=== PATIENT | female | born 1985 | race African-American/Black ===

== ENCOUNTER 2017-01-01 18:53 | Emergency (ER) | payer OTHER ==
[2017-01-01] MEDS ORDERED: ASPIRIN 325 MG TABLET, ENT COATED PO ONE (19:37)
--- NOTE | 2017-01-01 19:39 | ER Document Report ---
ED Medical Screen (RME) - General Chief Complaint: Chest Pain Stated Complaint: CHEST PAIN AND NAUSEA Time Seen by Provider: 01/01/17 19:37 Mode of Arrival: Ambulatory Information source: Patient, Parent TRAVEL OUTSIDE OF THE [place] IN LAST 30 DAYS: No - HPI Patient complains to provider of: CP Onset: Other - Pt. with c/o SSCP for the past several days -- was seen at recently and told it may be Chest Wall pain, given steroid pack, but pain has persisted - Related Data Allergies/Adverse Reactions: No Known Allergies Allergy (Verified 01/01/17 19:07) Past Medical History Pulmonary Medical History: Reports: Hx Bronchitis Denies: Hx Asthma Renal/ Medical History: Denies: Hx Peritoneal Dialysis - Immunizations Hx Diphtheria, Pertussis, Tetanus Vaccination: - Unknown Physical Exam - Vital signs Vitals: Temp Pulse Resp BP Pulse Ox 98.0 F 84 18 153/107 H 96 01/01/17 19:06 01/01/17 19:06 01/01/17 19:06 01/01/17 19:06 01/01/17 19:06 Course - Vital Signs Vital signs: Temp Pulse Resp BP Pulse Ox 98.0 F 84 18 153/107 H 96 01/01/17 19:06 01/01/17 19:06 01/01/17 19:06 01/01/17 19:06 01/01/17 19:06
[2017-01-01 20:15] LABS: ABSOLUTE BASOPHILS # (AUTO) 0.1 10^3/uL (0.0-0.2); ABSOLUTE EOSINOPHILS # (AUTO) 0.1 10^3/uL (0.0-0.6); ABSOLUTE LYMPHOCYTES (AUTO) 2.4 10^3/uL (0.5-4.7); ABSOLUTE MONOCYTES (AUTO) 0.9 10^3/uL (0.1-1.4); ABSOLUTE NEUT (AUTO) 5.3 10^3/uL (1.7-8.2); EOSINOPHILS % (AUTO) 0.7 % (0-6); HEMATOCRIT 40.8 % (36.0-47.0); HEMOGLOBIN 13.7 g/dL (12.0-15.5); HGB HCT DIFFERENCE 0.3; MEAN CORPUSCULAR HEMOGLOBIN 28.6 pg (27.0-33.4); MEAN CORPUSCULAR HGB CONC 33.6 g/dL (32.0-36.0); MEAN CORPUSCULAR VOLUME 85 fl (80-97); MONOCYTES % (AUTO) 10.4 % (3-13); RED BLOOD COUNT 4.79 10^6/uL (3.72-5.28); RED CELL DISTRIBUTION WIDTH 14.3 % (11.5-14.0); SEGMENTED NEUTROPHILS % (AUTO) 60.9 % (42-78); WHITE BLOOD COUNT 8.7 10^3/uL (4.0-10.5)
[2017-01-01 20:35] LABS: ALANINE AMINOTRANSFERASE 50 U/L (9-52); ALBUMIN 4.8 g/dL (3.5-5.0); ALKALINE PHOSPHATASE 86 U/L (38-126); ANION GAP 16 (5-19); ASPARTATE AMINO TRANSFERASE 27 U/L (14-36); BILIRUBIN,DIRECT 0.3 mg/dL (0.0-0.4); BILIRUBIN,TOTAL 0.7 mg/dL (0.2-1.3); BLOOD UREA NITROGEN 12 mg/dL (7-20); CALCIUM 10.1 mg/dL (8.4-10.2); CARBON DIOXIDE 26 mmol/L (22-30); CHLORIDE 97 mmol/L (98-107); CREATINE KINASE 142 U/L (30-135); CREATININE RESULT 0.87 mg/dL (0.52-1.25); GLUCOSE 93 mg/dL (75-110); POTASSIUM 3.6 mmol/L (3.6-5.0); SODIUM 138.6 mmol/L (137-145); TOTAL PROTEIN 8.5 g/dL (6.3-8.2)
[2017-01-01 20:46] LABS: CREATINE KINASE MB < 0.22 ng/mL (<4.55); TROPONIN I < 0.012 ng/mL
--- NOTE | 2017-01-01 21:47 | RADIOLOGY REPORT (SQ) ---
EXAM DESCRIPTION: CHEST PA/LAT COMPLETED DATE/TIME: 01/01/2017 9:28 pm REASON FOR STUDY: CP COMPARISON: 07/08/2009 EXAM PARAMETERS: NUMBER OF VIEWS: two views TECHNIQUE: Digital Frontal and Lateral radiographic views of the chest acquired. RADIATION DOSE: NA LIMITATIONS: none FINDINGS: LUNGS AND PLEURA: No opacities, masses or pneumothorax. No pleural effusion. MEDIASTINUM AND HILAR STRUCTURES: No masses or contour abnormalities. HEART AND VASCULAR STRUCTURES: Heart normal size. No evidence for failure. BONES: No acute findings. HARDWARE: None in the chest. OTHER: No other significant finding. IMPRESSION: NO SIGNIFICANT RADIOGRAPHIC FINDING IN THE CHEST. TECHNICAL DOCUMENTATION: JOB ID: [id number] [employer]- All Rights Reserved
--- NOTE | 2017-01-01 22:34 | ER Document Report ---
ED General - General Chief Complaint: Chest Pain Stated Complaint: CHEST PAIN AND NAUSEA Time Seen by Provider: 01/01/17 19:37 Mode of Arrival: Ambulatory Notes: Patient is a 31-year-old female presents with complaint of chest pain. Patient says chest pain for almost a week. She says that she saw urgent care on either Friday or Friday. She was started on a prednisone Dosepak and also hydrochlorothiazide. She started on the prednisone Dosepak because they felt that maybe her pain was chest wall pain. She says after starting the prednisone made her feel very warm and flushed and tingling throughout her extremities made her feel very unwell. She therefore stopped taking it. She still has the chest pain. Pain is mainly over the right upper side of the chest. She has some pain radiates into the left lower part of the chest. She denies pain being pleuritic. She denies any new leg pain or leg swelling. She is overweight. She does have high blood pressure. She denies history of diabetes. She has no other medical problems. She used to be on control. She quit control 2 months ago. She does not smoke. Medication she is on is a antidepressant. Her doctor placed her on this medication because they thought it might help her lose weight. She was started on the antidepressant 1 month ago. TRAVEL OUTSIDE OF THE [place] IN LAST 30 DAYS: No - Related Data Allergies/Adverse Reactions: No Known Allergies Allergy (Verified 01/01/17 19:07) Past Medical History - General Information source: Patient, Parent - Social History Smoking Status: Never Smoker Chew tobacco use (# tins/day): No Frequency of alcohol use: None Drug Abuse: None Family History: Reviewed & Not Pertinent Pulmonary Medical History: Reports: Hx Bronchitis Denies: Hx Asthma Renal/ Medical History: Denies: Hx Peritoneal Dialysis - Immunizations Hx Diphtheria, Pertussis, Tetanus Vaccination: - Unknown Review of Systems - Review of Systems Notes: My Normal Review Basic REVIEW OF SYSTEMS: CONSTITUTIONAL : Denies fever, chills, or sweats. Denies recent illness. EENT: Denies eye, ear, throat, or mouth pain or symptoms. Denies nasal or sinus congestion. CARDIOVASCULAR: Chest pain RESPIRATORY: Denies cough, cold, or chest congestion. Denies shortness of breath, difficulty breathing, or wheezing. GASTROINTESTINAL: Denies abdominal pain. Denies nausea, vomiting, or diarrhea. Denies constipation. Last BM: MUSCULOSKELETAL: Denies neck or back pain or joint pain or swelling. SKIN: Denies rash or skin lesions. NEUROLOGICAL: Denies altered mental status or loss of consciousness. Denies headache. Denies weakness or paralysis or loss of use of either side. Denies problems with gait or speech. Denies sensory or motor loss. ALL OTHER SYSTEMS REVIEWED AND NEGATIVE. Physical Exam - Vital signs Vitals: Temp Pulse Resp BP Pulse Ox 98.0 F 84 18 153/107 H 96 01/01/17 19:06 01/01/17 19:06 01/01/17 19:06 01/01/17 19:06 01/01/17 19:06 - Notes Notes: General Appearance: Well nourished, alert, cooperative, no acute distress, no obvious discomfort. Vitals: reviewed, See vital signs table. Head: no swelling or tenderness to the head Eyes: PERRL, EOMI, Conjuctiva clear Mouth: No decreasd moisture Throat: No tonsillar inflammation, No airway obstruction, No lymphadenopathy Neck: Supple, no neck tenderness Chest wall: No reproducible pain to palpation of chest wall. Lungs: No wheezing, No rales, No rhonci, No accessory muscle use, good air exchange bilaterally. Heart: Normal rate, Regular rythm, No murmur, no rub Abdomen: Normal BS, soft, No rigidity, No abdominal tenderness, No guarding, no rebound, no abdominal masses, no organomegaly Extremities: strength 5/5 in all extremities, good pulses in all extremities, no swelling or tenderness in the extremities, no edema. Skin: warm, dry, appropriate color, no rash Neuro: speech clear, oriented x 3, normal affect, responds appropriately to questions. Course - Re-evaluation Re-evalutation: 01/02/17 02:45 The exact cause of the patient's chest pain is not 100% clear at this time. Suspect there may be a gastritis and reflux component being that she has a burning type sensation that radiates up into her chest. Pain is also intermittent. I do not suspect coronary disease being the patient is only 31 years old, she has no cardiac risk factors other than hypertension and obesity, she is not diabetic, and her troponin and delta troponin are both negative. I did obtain a d-dimer which is negative. My suspicion for PE is very low. She is not tachycardic, not tachypneic, not hypoxemic. She is not currently on oral contraceptive therapy as she has not had any recent surgeries. She denies any leg pain or leg swelling. At this time I will discharge her home. I will place her amlodipine to help treat her hypertension. I encouraged her to continue take a 12-1/2 mg of hydrochlorothiazide. I will refer her to [facility] for evaluation also for continued blood pressure management. She is encouraged to return to ER if she has worsening chest pain, fevers, vomiting , or feels unwell. Patient agrees with plan and will be discharged home. Dictation of this chart was performed using voice recognition software; therefore, there may be some unintended grammatical errors. - Vital Signs Vital signs: Temp Pulse Resp BP Pulse Ox 98.0 F 84 15 139/96 H 99 01/01/17 19:06 01/01/17 19:06 01/02/17 00:19 01/02/17 00:01 01/02/17 00:19 - Laboratory Result Diagrams: 01/01/17 19:59 01/01/17 19:59 Laboratory results interpreted by me: 01/01/17 01/01/17 19:59 19:59 RDW 14.3 H Chloride 97 L Creatine Kinase 142 H Total Protein 8.5 H - EKG Interpretation by Me Additional EKG results interpreted by me: 01/01/17 22:33 EKG is reviewed and interpreted by me. EKG shows normal sinus with a rate of [address] segment elevation or depression. No ischemic T-wave inversions. KS interval, QRS duration, QTc intervals are within normal range. No old EKG available for comparison. Discharge - Discharge Clinical Impression: Hypertension Qualifiers: Hypertension type: unspecified Qualified Code(s): I10 - Essential (primary) hypertension Chest pain Qualifiers: Chest pain type: unspecified Qualified Code(s): R07.9 - Chest pain, unspecified Condition: Good Disposition: HOME, SELF-CARE Additional Instructions: NORMAL EXAM AND WORKUP: At this time, your examination and workup show no significant abnormality. No significant abnormal physical findings were noted. All laboratory, EKG, and imaging (x-ray) studies that were ordered show no significant abnormality. Although your examination and all studies that were ordered showed no significant abnormal finding, there are no examinations and no studies that are 100% accurate. There is always the possibility that some abnormality could exist and not be detected with physical examination or within the limits and capabilities of laboratory and other studies. You should return or follow up as you were instructed on your visit today for further evaluation if your symptoms do not resolve. ACID REFLUX DISEASE (GERD): Gastro-Esophageal Reflux Disease (GERD) is caused by stomach acid refluxing back up into the esophagus. The valve at the end of the esophagus may be weak. This is common in persons with a hiatal hernia. GERD symptoms can include indigestion, chest pain, heartburn, or food "sticking." Certain foods, alcohol, and aspirin can make GERD worse. Treatment depends on the severity. Usually, antacids or acid-suppressing medicines are used. When the esophagus is acutely inflamed, the physician will often prescribe membrane-protective drugs such as Carafate. Some patients benefit from medication such as Reglan that tightens the valve at the top of the stomach. Avoid those foods that bring on your symptoms. For many people, these foods are coffee, chocolate, onions, garlic, and carbonated drinks. Don't use alcohol, aspirin, caffeine, or tobacco. Don't eat late at night -- within 4 hours of bedtime. Don't over-eat. If necessary, elevate the head of your bed about 4 inches so that stomach acid will not roll up into your esophagus. Call the doctor if you develop severe chest pain, inability to swallow fluids, fever, or worsening symptoms. PRILOSEC (ACID PUMP INHIBITOR): Prilosec (omeprazole) is an acid-pump inhibitor. It blocks the secretion of hydrogen ions in the acid-producing cells of the stomach. Prilosec keeps your stomach from making acid. Take all medication as prescribed, even after the pain is gone. Regular antacids may be added as needed if you have symptoms while taking this medicine. There are usually no side effects from this medication. Contact your doctor if there is fever, rash, yellow skin color, increasing abdominal pain, weakness, or unusual bruising. Return at once if you develop lightheadedness, black or bloody stool, or bloody vomitus. FOLLOW-UP CARE: If you have been referred to a physician for follow-up care, call the physician s office for an appointment as you were instructed or within the next two days. If you experience worsening or a significant change in your symptoms, notify the physician immediately or return to the Emergency Department at any time for re-evaluation. The exact cause of her chest pain is on 100% clear. This could be related to acid reflux being that you have a burning type sensation that goes into her chest. Please start taking [id number] Prilosec. The generic name is omeprazole. You can find this at any pharmacy. You do have some hypertension. I will start you on amlodipine 5 mg a day. Please stop taking this medication if it makes you feel weak or tired or lightheaded. Please follow-up with your primary care doctor for reevaluation. If you continue to have chest pain please follow-up with Dr. Johnson, [facility], for reevaluation and for also further control of your high blood pressure. Prescriptions: Amlodipine Besylate 5 mg PO DAILY #20 tab Forms: Return to Work Referrals: JOSE JOHNSON MD [ACTIVE STAFF] - Follow up in 3-5 days
--- NOTE | 2017-01-01 22:47 | EKG REPORT ---
SEVERITY:- NORMAL ECG - SINUS RHYTHM : Confirmed by: Corie Street 01-Jan-2017 22:46:51
[2017-01-02] MEDS ORDERED: FAMOTIDINE 20 MG TABLET PO ONE (00:08)
[2017-01-02 00:20] VITALS: BP 139/96
== END 2017-01-02 00:41 | disposition home or self-care (01) ==
LOC: ER 18:53
DX: R07.9 Chest pain, unspecified (principal); M79.89 Other specified soft tissue disorders; I10 Essential (primary) hypertension
CPT/HCPCS: 36415; 71020; 80053; 82550; 82553; 84484; 85025; 85379; 93005; 93010; 99285

== ENCOUNTER → 2017-07-08 | Outpatient (CLI) | payer OTHER | LOC: OD 11:01 | PROVIDERS: ATTEND Otolaryngology | DX: J01.91 Acute recurrent sinusitis, unspecified (principal) | CPT/HCPCS: 36415; 82785; 86003 ==

== ENCOUNTER 2018-09-24 12:34 | Emergency (ER) | payer OTHER ==
--- NOTE | 2018-09-24 13:00 | ER Document Report ---
ED Medical Screen (RME) - General Chief Complaint: Chest Pain Stated Complaint: CHEST PAIN Time Seen by Provider: 09/24/18 12:54 Primary Care Provider: MAR HOLBROOK DO [NO LOCAL MD] - Follow up as needed Mode of Arrival: Ambulatory Information source: Patient Notes: Patient is a 33-year-old female presented to the emergency department with complaints of right upper quadrant abdominal pain that started on Friday. Patient reports pain is worse when she takes a deep breath. The pain is not reproducible. She did have associated nausea without vomiting or diarrhea. She does not report that this is associated with any food intake. Exam: Tenderness to palpation to right upper quadrant. I have greeted and performed a rapid initial assessment of this patient. A comprehensive ED assessment and evaluation of the patient, analysis of test results and completion of the medical decision making process will be conducted by additional ED providers. Dictation of this chart was performed using voice recognition software; therefore, there may be some unintended grammatical errors. TRAVEL OUTSIDE OF THE [place] IN LAST 30 DAYS: No - Related Data Allergies/Adverse Reactions: No Known Allergies Allergy (Verified 09/24/18 12:37) Past Medical History - Past Medical History Cardiac Medical History: Reports: Hx Hypertension Pulmonary Medical History: Reports: Hx Bronchitis Denies: Hx Asthma Renal/ Medical History: Denies: Hx Peritoneal Dialysis - Immunizations Hx Diphtheria, Pertussis, Tetanus Vaccination: - Unknown Physical Exam - Vital signs Vitals: Temp Pulse Resp BP Pulse Ox 98.0 F 86 18 184/85 H 97 09/24/18 12:38 09/24/18 12:38 09/24/18 12:38 09/24/18 12:38 09/24/18 12:38 Course - Vital Signs Vital signs: Temp Pulse Resp BP Pulse Ox 98.0 F 86 18 184/85 H 97 09/24/18 12:38 09/24/18 12:38 09/24/18 12:38 09/24/18 12:38 09/24/18 12:38 Doctor's Discharge - Discharge Referrals: EDWIGE SERVIN DO [Primary Care Provider] - Follow up as needed
--- NOTE | 2018-09-24 13:06 | EKG REPORT ---
SEVERITY:- NORMAL ECG - SINUS RHYTHM : Confirmed by: Christ Roa MD 24-Sep-2018 13:04:47
[2018-09-24 13:27] LABS: ABSOLUTE BASOPHILS # (AUTO) 0.1 10^3/uL (0.0-0.2); ABSOLUTE EOSINOPHILS # (AUTO) 0.1 10^3/uL (0.0-0.6); ABSOLUTE LYMPHOCYTES (AUTO) 2.1 10^3/uL (0.5-4.7); ABSOLUTE MONOCYTES (AUTO) 0.6 10^3/uL (0.1-1.4); ABSOLUTE NEUT (AUTO) 4.9 10^3/uL (1.7-8.2); BASOPHILS % (AUTO) 1.1 % (0-2); EOSINOPHILS % (AUTO) 0.9 % (0-6); HEMATOCRIT 38.5 % (36.0-47.0); HEMOGLOBIN 12.8 g/dL (12.0-15.5); LYMPHOCYTES % (AUTO) 26.8 % (13-45); MEAN CORPUSCULAR HEMOGLOBIN 28.6 pg (27.0-33.4); MEAN CORPUSCULAR HGB CONC 33.3 g/dL (32.0-36.0); MEAN CORPUSCULAR VOLUME 86 fl (80-97); MONOCYTES % (AUTO) 7.4 % (3-13); PLATELET COUNT 355 10^3/uL (150-450); RED BLOOD COUNT 4.49 10^6/uL (3.72-5.28); RED CELL DISTRIBUTION WIDTH 13.9 % (11.5-14.0); SEGMENTED NEUTROPHILS % (AUTO) 63.8 % (42-78); TOTAL CELLS COUNTED % (AUTO) 100 %; WHITE BLOOD COUNT 7.7 10^3/uL (4.0-10.5)
[2018-09-24 13:36] LABS: APPEARANCE,URINE CLEAR; BILIRUBIN,URINE NEGATIVE (NEGATIVE); COLOR,URINE YELLOW; GLUCOSE, URINE NEGATIVE (NEGATIVE); KETONES,URINE NEGATIVE (NEGATIVE); LEUKOCYTE ESTERASE,URINE NEGATIVE (NEGATIVE); NITRITE,URINE NEGATIVE (NEGATIVE); PROTEIN,URINE 30 mg/dL (NEGATIVE); URINE SPECIFIC GRAVITY 1.018; UROBILINOGEN,URINE NEGATIVE mg/dL (<2.0)
[2018-09-24 13:53] LABS: ALANINE AMINOTRANSFERASE 32 U/L (9-52); ALBUMIN 4.4 g/dL (3.5-5.0); ALKALINE PHOSPHATASE 66 U/L (38-126); ANION GAP 10 (5-19); ASPARTATE AMINO TRANSFERASE 25 U/L (14-36); BILIRUBIN,DIRECT 0.2 mg/dL (0.0-0.4); BILIRUBIN,TOTAL 0.3 mg/dL (0.2-1.3); BLOOD UREA NITROGEN 13 mg/dL (7-20); CALCIUM 9.8 mg/dL (8.4-10.2); CARBON DIOXIDE 27 mmol/L (22-30); CHLORIDE 104 mmol/L (98-107); GLUCOSE 96 mg/dL (75-110); LIPASE 59.8 U/L (23-300); POTASSIUM 4.3 mmol/L (3.6-5.0); SODIUM 140.8 mmol/L (137-145); TOTAL PROTEIN 8.3 g/dL (6.3-8.2)
--- NOTE | 2018-09-24 14:44 | ER Document Report ---
ED General - General Chief Complaint: Chest Pain Stated Complaint: CHEST PAIN Time Seen by Provider: 09/24/18 12:54 Primary Care Provider: MAR HOLBROOK DO [Primary Care Provider] - Follow up as needed Mode of Arrival: Ambulatory Notes: Patient is a 33-year-old female with a history of hypertension presents to the emergency department with chief complaint of right lower rib pain. Patient states that on Friday she was driving in a car when she developed a right rib pain. Patient states she was not doing anything specific at that time. Patient states that since then the pain has been intermittent and worse when laying on her right side or when taking a deep breath. Patient denies fever, cough, shortness of breath or chest pain. Patient denies shortness of breath. Patient denies pain being associated with eating or drinking. Patient does deny abdominal pain although she states the pain could potentially be in the right upper quadrant as it is located underneath the right rib. Patient denies nausea vomiting or diarrhea. She denies recent long car rides. Patient does not smoke. Patient takes control pills. Patient denies calf pain or leg swelling. TRAVEL OUTSIDE OF THE [place] IN LAST 30 DAYS: No - Related Data Allergies/Adverse Reactions: No Known Allergies Allergy (Verified 09/24/18 12:37) Past Medical History - General Information source: Patient - Social History Smoking Status: Never Smoker Cigarette use (# per day): No Chew tobacco use (# tins/day): No Smoking Education Provided: No Frequency of alcohol use: None Drug Abuse: None Lives with: Family Family History: Reviewed & Not Pertinent Patient has suicidal ideation: No Patient has homicidal ideation: No - Past Medical History Cardiac Medical History: Reports: Hx Hypertension Pulmonary Medical History: Reports: Hx Bronchitis Denies: Hx Asthma EENT Medical History: Reports: None Neurological Medical History: Reports: None Endocrine Medical History: Reports: None Renal/ Medical History: Reports: None. Denies: Hx Peritoneal Dialysis Malignancy Medical History: Reports: None GI Medical History: Reports: None Musculoskeletal Medical History: Reports None Skin Medical History: Reports None Psychiatric Medical History: Reports: None Traumatic Medical History: Reports: None Infectious Medical History: Reports: None Surgical Hx: Negative - Immunizations Hx Diphtheria, Pertussis, Tetanus Vaccination: - Unknown Review of Systems - Review of Systems Constitutional: No symptoms reported EENT: No symptoms reported Cardiovascular: No symptoms reported Respiratory: See HPI Gastrointestinal: No symptoms reported Genitourinary: No symptoms reported Female Genitourinary: No symptoms reported Musculoskeletal: No symptoms reported Skin: No symptoms reported Hematologic/Lymphatic: No symptoms reported Neurological/Psychological: No symptoms reported Physical Exam - Vital signs Vitals: Temp Pulse Resp BP Pulse Ox 98.0 F 86 18 184/85 H 97 09/24/18 12:38 09/24/18 12:38 09/24/18 12:38 09/24/18 12:38 09/24/18 12:38 Interpretation: Hypertensive - Notes Notes: GENERAL: Well-appearing, well-nourished and in no acute distress. HEAD: Atraumatic, normocephalic. EYES: Pupils equal round and reactive to light, extraocular movements intact, sclera anicteric, conjunctiva are normal. ENT: Nares patent, oropharynx clear without exudates. Moist mucous membranes. NECK: Normal range of motion, supple without lymphadenopathy or JVD. LUNGS: Breath sounds clear to auscultation bilaterally and equal. No wheezes rales or rhonchi. Right lower rib pain with palpation. HEART: Regular rate and rhythm without murmurs, rubs or gallops. ABDOMEN: Round, obese, soft, nontender, normoactive bowel sounds. No guarding, no rebound. No masses appreciated. BACK: No cervical, thoracic, lumbar midline tenderness. No saddle anesthesia, normal distal neurovascular exam. GENITOURINARY: Deferred. EXTREMITIES: Normal range of motion, no pitting or edema. No clubbing or cyanosis. NEUROLOGICAL: Cranial nerves II through XII grossly intact. Normal speech, normal gait. PSYCH: Normal mood, normal affect. SKIN: Warm, Dry, normal turgor, no rashes or lesions noted. Course - Re-evaluation Re-evalutation: 09/24/18 14:49 Upon initial evaluation patient is sitting upright in no acute distress. Patient currently denies pain or discomfort in the RUQ or right lower rib. Patient states that she has not taken her blood pressure medications today. Patient reports that she went to [facility] for her discomfort since Friday but they sent her to the emergency department for evaluation of possible blood clot. Patient is a nontoxic-appearing. Informed patient that my suspicion for blood clot is low, but we can add on a test called a d-dimer to the blood work, if this is normal we do not have to expose her to radiation from the CAT scan. Patient is in agreement with this plan. Patient does not want anything for pain at this time. Patient is not tachycardic, tachypneic, or hypoxic. Patient was able to ambulate to the restroom without distress or shortness of breath. 09/24/18 18:19 CAT scan of the chest was negative. I did discuss these results with the patient and family member at bedside. Her symptoms are most likely musculoskeletal. Informed patient to take Tylenol or Ibuprofen if the symptoms return and seek medical attention if symptoms persist. Informed patient to take her blood pressure medication due to elevated BP, patient states she has not had her dosage as of today. - Vital Signs Vital signs: Temp Pulse Resp BP Pulse Ox 98.0 F 86 16 151/83 H 100 09/24/18 12:38 09/24/18 12:38 09/24/18 18:00 09/24/18 17:05 09/24/18 18:00 - Laboratory Result Diagrams: 09/24/18 13:11 09/24/18 13:11 Laboratory results interpreted by me: 09/24/18 09/24/18 09/24/18 13:11 13:11 13:11 D-Dimer 0.72 H Total Protein 8.3 H Urine Protein 30 H Urine Blood SMALL H - Diagnostic Test Radiology reviewed: Reports reviewed - EKG Interpretation by Me Additional EKG results interpreted by me: 09/24/18 14:48 Patient's EKG shows a sinus rhythm with a rate of 69. Patient's RI interval is 160, QT 392 and QTc 420. Patient has a normal axis deviation with no ST changes in consecutive leads. No change from previous EKG. Discharge - Discharge Clinical Impression: Rib pain on right side, Musculoskeletal pain Condition: Stable Disposition: HOME, SELF-CARE Additional Instructions: Today you were seen in the emergency department for right rib and right upper quadrant abdominal pain. Did obtain a CAT scan of your chest which was negative for pulmonary embolus. The pain that you are having could be musculoskeletal in nature. Take Tylenol or ibuprofen as needed for pain. If the pain returns or persist please go to your primary care physician for further management. Please return to the emergency department for worsening signs or symptoms to include severe abdominal pain, fever, vomiting, nausea, vomiting any worsening signs or symptoms. Chest Wall Pain Your chest pain has been diagnosed as coming from the chest wall. This is often caused by straining the muscles or joints in the chest during physical activity, direct trauma, coughing, or vigorous vomiting. Persons with arthritis are especially prone to this type of pain, due to inflammation of the cartilage joints near the breast bone. Occasionally, no cause can be found. Rest from strenuous physical activity. This kind of chest pain is usually made worse by movement of the chest. Depending on the symptoms, we may prescribe medicine for pain, muscle relaxation, and antiinflammatory effects. If the pain is new, and seems to be due to muscle strain, cold packs can hel p. Otherwise, apply gentle warmth to the painful area for 15 minutes every hour or two. You should contact the doctor immediately if things change. Further evaluation is needed if you develop a fever or cough, if the nature of the pain changes, or if you become short of breath. Referrals: MAR HOLBROOK, [Primary Care Provider] - Follow up as needed
--- NOTE | 2018-09-24 15:28 | RADIOLOGY REPORT (SQ) ---
EXAM DESCRIPTION: CHEST 2 VIEWS COMPLETED DATE/TIME: 09/24/2018 3:18 pm REASON FOR STUDY: right rib pain COMPARISON: 01/01/2017. EXAM PARAMETERS: NUMBER OF VIEWS: two views TECHNIQUE: Digital Frontal and Lateral radiographic views of the chest acquired. RADIATION DOSE: NA LIMITATIONS: none FINDINGS: LUNGS AND PLEURA: No opacities, masses or pneumothorax. No pleural effusion. MEDIASTINUM AND HILAR STRUCTURES: No masses or contour abnormalities. HEART AND VASCULAR STRUCTURES: Heart normal size. No evidence for failure. BONES: No acute findings. HARDWARE: None in the chest. OTHER: No other significant finding. IMPRESSION: NO ACUTE RADIOGRAPHIC FINDING IN THE CHEST. TECHNICAL DOCUMENTATION: JOB ID: [id number] [employer]- All Rights Reserved Reading location - IP/workstation name: [email or web address]
--- NOTE | 2018-09-24 18:14 | RADIOLOGY REPORT (SQ) ---
EXAM DESCRIPTION: CTA CHEST COMPLETED DATE/TIME: 09/24/2018 5:57 pm REASON FOR STUDY: elevated d-dimer COMPARISON: None. TECHNIQUE: CT scan of the chest performed using helical scanning technique with dynamic intravenous contrast injection. Images reviewed with lung, soft tissue and bone windows. Reconstructed coronal and sagittal MPR images reviewed. Additional 3 dimensional post-processing performed to develop Maximal Intensity Projection images ([place] P). All images stored on PACS. All CT scanners at this facility use dose modulation, iterative reconstruction, and/or weight based d osing when appropriate to reduce radiation dose to as low as reasonably achievable (ALARA). [facility]: Dose Right [facility]: CareDose [facility]: Dose Right [facility]: Teradose 4D [facility]: [employer] CONTRAST TYPE AND DOSE: contrast/concentration: Isovue 350.00 mg/ml; Total Contrast Delivered: 89.0 ml; Total Saline Delivered: 80.0 ml Contrast bolus optimized for the pulmonary arteries. Not diagnostic for the aorta. RENAL FUNCTION: GFR > 60. RADIATION DOSE: CT Rad equipment meets quality standard of care and radiation dose reduction techniq ues were employed. CTDIvol: 41.8 - 44.6 mGy. DLP: 1798 mGy-cm. . LIMITATIONS: None. FINDINGS: LUNGS AND PLEURA: No masses, infiltrates, or pneumothorax. No pleural effusions or pleura l calcifications. AORTA AND GREAT VESSELS: No aneurysm. Contrast bolus not optimized for the aorta. HEART: No pericardial effusion. No significant coronary artery calcifications. PULMONARY ARTERIES: No emboli visualized in the main pulmonary arteries or the segmental branches. HILAR AND MEDIASTINAL STRUCTURES: No identified masses or abnormal nodes. HARDWARE: None in the chest. UPPER ABDOMEN: No significant findings. Limited exam. THYROID AND OTHER SOFT TISSUES: No masses. No adenopathy. BONES: No acute or significant finding. 3D MIPS: Confirm above findings. OTHER: No other significant finding. IMPRESSION: NORMAL CTA OF THE CHEST. NO PULMONARY EMBOLI. COMMENT: Quality ID # [id number]: Final reports with documentation of one or more dose reduction techniques (e.g., Automated exposure control, adjustment of the mA and/or kV according to patient size, use of iterative reconstruction technique) TECHNICAL DOCUMENTATION: JOB ID: [id number] [employer]- All Rights Reserved Reading location - IP/workstation name: [email or web address]
[2018-09-24 19:37] VITALS: BP 136/78
== END 2018-09-24 19:38 | disposition home or self-care (01) ==
LOC: ER 12:34
DX: R07.81 Pleurodynia (principal); Z79.3 Long term (current) use of hormonal contraceptives
CPT/HCPCS: 36415; 71046; 71275; 80053; 81001; 81025; 83690; 85025; 85379; 93005; 93010; 99284

== ENCOUNTER → 2020-02-18 | Outpatient (CLI) | payer OTHER ==
--- NOTE | 2020-02-18 12:46 | RADIOLOGY REPORT (SQ) ---
EXAM DESCRIPTION: CHEST SINGLE VIEW IMAGES COMPLETED DATE/TIME: 02/18/2020 12:37 pm REASON FOR STUDY: ESSENTIAL (PRIMARY) HYPERTENSION, MORBID OBESITY, TYPE 2 DIABETES COMPARISON: 09/24/2018 EXAM PARAMETERS: NUMBER OF VIEWS: One view. TECHNIQUE: Single frontal radiographic view of the chest acquired. RADIATION DOSE: NA LIMITATIONS: None. FINDINGS: LUNGS AND PLEURA: No opacities, masses or pneumothorax. No pleural effusion. MEDIASTINUM AND HILAR STRUCTURES: No masses. Contour normal. HEART AND VASCULAR STRUCTURES: Heart normal in size. Normal vasculature. BONES: No acute findings. HARDWARE: None in the chest. OTHER: No other significant finding. IMPRESSION: NO ACUTE RADIOGRAPHIC FINDING IN THE CHEST. TECHNICAL DOCUMENTATION: JOB ID: [id number] 2010 [employer]- All Rights Reserved Reading location - IP/workstation name: [email or web address]
== END ==
LOC: OD 11:49
PROVIDERS: ATTEND Surgery
DX: E66.01 Morbid (severe) obesity due to excess calories (principal); E11.9 Type 2 diabetes mellitus without complications; I10 Essential (primary) hypertension; G47.30 Sleep apnea, unspecified
CPT/HCPCS: 71045

== ENCOUNTER 2020-05-18 14:42 | Emergency (ER) | payer OTHER ==
[2020-05-18 15:59] LABS: APPEARANCE,URINE SLIGHTLY-CLOUDY; BILIRUBIN,URINE NEGATIVE (NEGATIVE); GLUCOSE, URINE NEGATIVE (NEGATIVE); KETONES,URINE 80 mg/dL (NEGATIVE); LEUKOCYTE ESTERASE,URINE TRACE (NEGATIVE); NITRITE,URINE NEGATIVE (NEGATIVE); PROTEIN,URINE >=500 mg/dL (NEGATIVE); URINE SPECIFIC GRAVITY 1.032
[2020-05-18 16:00] LABS: COLOR,URINE YELLOW
[2020-05-18 16:05] LABS: ABSOLUTE LYMPHOCYTES (AUTO) 0.8 10^3/uL (0.5-4.7); ABSOLUTE MONOCYTES (AUTO) 0.4 10^3/uL (0.1-1.4); ABSOLUTE NEUT (AUTO) 2.5 10^3/uL (1.7-8.2); BASOPHILS % (AUTO) 0.5 % (0-2); EOSINOPHILS % (AUTO) 0.2 % (0-6); HEMATOCRIT 37.1 % (36.0-47.0); HEMOGLOBIN 12.2 g/dL (12.0-15.5); LYMPHOCYTES % (AUTO) 22.1 % (13-45); MEAN CORPUSCULAR HEMOGLOBIN 29.1 pg (27.0-33.4); MEAN CORPUSCULAR HGB CONC 32.8 g/dL (32.0-36.0); MEAN CORPUSCULAR VOLUME 89 fl (80-97); MONOCYTES % (AUTO) 10.1 % (3-13); PLATELET COUNT 239 10^3/uL (150-450); RED BLOOD COUNT 4.18 10^6/uL (3.72-5.28); RED CELL DISTRIBUTION WIDTH 14.1 % (11.5-14.0); SEGMENTED NEUTROPHILS % (AUTO) 67.1 % (42-78); TOTAL CELLS COUNTED % (AUTO) 100 %; WHITE BLOOD COUNT 3.8 10^3/uL (4.0-10.5)
[2020-05-18 16:29] LABS: ALBUMIN 4.2 g/dL (3.5-5.0); ALKALINE PHOSPHATASE 60 U/L (38-126); ANION GAP 15 (5-19); ASPARTATE AMINO TRANSFERASE 37 U/L (14-36); BILIRUBIN,DIRECT 0.3 mg/dL (0.0-0.4); BILIRUBIN,TOTAL 0.6 mg/dL (0.2-1.3); BLOOD UREA NITROGEN 13 mg/dL (7-20); CALCIUM 9.6 mg/dL (8.4-10.2); CARBON DIOXIDE 22 mmol/L (22-30); CHLORIDE 101 mmol/L (98-107); GLUCOSE 92 mg/dL (75-110); TOTAL PROTEIN 7.4 g/dL (6.3-8.2)
--- NOTE | 2020-05-18 16:36 | ER Document Report ---
ED GI/ - General Chief Complaint: Flank Pain Stated Complaint: RIGHT FLANK PAIN Time Seen by Provider: 05/18/20 15:11 Primary Care Provider: [facility] [Provider Group] - Follow up as needed YAMILETH GONZALEZ [ACTIVE STAFF] - Follow up as needed TRAVEL OUTSIDE OF THE [place] IN LAST 30 DAYS: No - HPI Notes: Patient is a 35-year-old female with no medical history who presents with right flank pain that began this morning. Patient states the pain radiates to her right lower quadrant. She reports nausea and vomiting but denies fever, chills, dysuria, hematuria, and diarrhea. Patient had a gastric sleeve surgery done on 04/12/2021 but denies any complications. Patient denies any history of kidney stones. Patient has not taken any medication for the pain today. - Related Data Allergies/Adverse Reactions: No Known Allergies Allergy (Verified 09/24/18 12:37) Past Medical History - General Information source: Patient - Social History Smoking Status: Unknown if Ever Smoked Family History: Reviewed & Not Pertinent - Past Medical History Cardiac Medical History: Reports: Hx Hypertension Pulmonary Medical History: Reports: Hx Bronchitis Denies: Hx Asthma Renal/ Medical History: Denies: Hx Peritoneal Dialysis - Immunizations Hx Diphtheria, Pertussis, Tetanus Vaccination: - Unknown Review of Systems - Review of Systems Constitutional: No symptoms reported EENT: No symptoms reported Cardiovascular: No symptoms reported Respiratory: No symptoms reported Gastrointestinal: See HPI Genitourinary: See HPI Female Genitourinary: No symptoms reported Musculoskeletal: No symptoms reported Skin: No symptoms reported Hematologic/Lymphatic: No symptoms reported Neurological/Psychological: No symptoms reported Physical Exam - Vital signs Vitals: Temp Pulse Resp BP Pulse Ox 98.0 F 101 H 18 150/90 H 98 05/18/20 14:45 05/18/20 14:45 05/18/20 14:45 05/18/20 14:45 05/18/20 14:45 - Notes Notes: PHYSICAL EXAMINATION: VITALS: Vitals reviewed and within normal limits. GENERAL: Well-appearing, well-nourished and in no acute distress. HEAD: Atraumatic, normocephalic. EYES: Pupils equal, round, and reactive to light, extraocular movements intact, sclera anicteric, conjunctiva are normal. ENT: Nares patent. Moist mucous membranes. Oropharynx clear without exudates. NECK: Normal range of motion, supple without lymphadenopathy. LUNGS: Breath sounds clear to auscultation bilaterally and equal. No wheezes, rales, or rhonchi. HEART: Regular, rate, and rhythm without murmurs. ABDOMEN: Soft, nontender, normoactive bowel sounds. No guarding, no rebound. No masses appreciated. No CVA tenderness EXTREMITIES: Normal range of motion, no pitting or edema. No cyanosis. NEUROLOGICAL: No focal neurological deficits. Moves all extremities spontaneously and on command. PSYCH: Normal mood, normal affect. SKIN: Warm, Dry, normal turgor, no rashes or lesions noted. Course - Re-evaluation Re-evalutation: Patient is a 35 y/o with right flank pain that radiates to her right lower quadrant that started earlier today. Vital signs are within normal limits and stable. On exam, abdomen is soft and nontender with negative CVA tenderness. CBC, and CMP are unremarkable and within normal limits. Lipase is minimally elev ated at 349. UA shows protein >500 and large blood but this is consistent with patient's current menstruation and is not a concerning finding. UA also shows ketones of 80, and trace leukocyte esterase but negative nitrite, however, urine is fairly dirty with 13 squamous epithelial cells. Urine culture ordered. 05/18/20 17:18 CT abdomen/pelvis w/o contrast shows no evidence of urolithiasis or obstructive uropathy. Incidental finding of a 5.7 cm right adnexal cyst. In the setting of right-sided pain, recommend further evaluation with pelvic ultrasound to assess right ovarian vascularity. Transvaginal US ordered. 05/18/20 17:58 Transvaginal US impression: 1. Enlarged right ovary with right ovarian cyst measuring up to 5.2 cm. There are some low-level internal echoes/thin internal septations with a small hyperechoic avascular structure at the periphery of the cyst, possibly representing a small blood clot. Given the presence of this echogenic structure, recommend follow-up ultrasound in 6 weeks to confirm resolution and to exclude persistent hypovascular solid component. 2. Arterial and venous blood flow demonstrated to both ovaries. 05/18/20 19:08 I informed the patient of her US results and the recommendation to follow up with her [facility] in 6 weeks for repeat US. Laboratories are unremarkable without evidence of cystitis, , or leukocytosis. Patient is overall very well in appearance. Based on clinical history and examination I do not suspect an acute appendicitis, tubo-ovarian abscess, related pathology, pelvic inflammatory disease, mesenteric ischemia, or pyelonephritis. At this time will discharge with return precautions and follow-up re commendations. Verbal discharge instructions given a the bedside and opportunity for questions given. Medication warnings reviewed. Patient is in agreement with this plan and has verbalized understanding of return precautions and the need for primary care follow-up in the next 24-72 hours. - Vital Signs Vital signs: Temp Pulse Resp BP Pulse Ox 98.5 F 75 18 152/99 H 100 05/18/20 19:26 05/18/20 19:26 05/18/20 19:26 05/18/20 19:26 05/18/20 19:26 - Laboratory Results Result Diagrams: 05/18/20 15:45 05/18/20 15:45 Laboratory Results Interpreted: 05/18/20 05/18/20 05/18/20 15:05 15:45 15:45 WBC 3.8 L RDW 14.1 H AST 37 H ALT 50 H Lipase 349.3 H Urine Protein >=500 H Urine Ketones 80 H Urine Blood LARGE H Urine Urobilinogen 2.0 H Ur Leukocyte Esterase TRACE H Critical Laboratory Results Reviewed: No Critical Results - Radiology Results Radiology Results Interpreted: Abdomen/Pelvis CT 05/18/20 15:28 IMPRESSION: No evidence of urolithiasis or obstructive uropathy. Incidental finding of a 5.7 cm right adnexal cyst. In the setting of right-sided pain, recommend further evaluation with pelvic ultrasound to assess right ovarian vascularity. Abdomen/Pelvis CT 05/18/20 15:28 IMPRESSION: No evidence of urolithiasis or obstructive uropathy. Incidental finding of a 5.7 cm right adnexal cyst. In the setting of right-sided pain, recommend further evaluation with pelvic ultrasound to assess right ovarian vascularity. Transvaginal US 05/18/20 17:13 IMPRESSION: 1. Enlarged right ovary with right ovarian cyst measuring up to 5 .2 cm. There are some low-level internal echoes/thin internal septations with a small hyperechoic avascular structure at the periphery of the cyst, possibly representing a small blood clot. Given the presence of this echogenic structure, recommend follow-up ultrasound in 6 weeks to confirm resolution and to exclude persistent hypovascular solid component. 2. Arterial and venous blood flow demonstrated to both ovaries. Critical Radiology Results Reviewed: No Critical Results Discharge - Discharge Clinical Impression: Right sided abdominal pain, Right flank pain Ovarian cyst Qualifiers: Laterality: right Qualified Code(s): N83.201 - Unspecified ovarian cyst, right side Condition: Stable Disposition: HOME, SELF-CARE Additional Instructions: Today been diagnosed with an ovarian cyst. These typically occur in the middle of your typical menstrual cycle. The pain should last for no more than 3-4 days. For your pain: Take ibuprofen 600 mg and acetaminophen 1000 mg every 6 hours together as needed for pain. Please follow-up with your [facility] regarding today's visit. Radiologist have recommonded a repeat US be done in 6 weeks due to the nature and size of your cyst. If you have multiple recurrent cyst that continue to cause you pain like this, you may require hormone therapy such as oral control pills to prevent recurrence of the same. Return if you develop fever, nausea, vomiting, worsening abdominal pain, pass out, or have any other symptoms that are worrisome to you. Referrals: YAMILETH GONZALEZ [ACTIVE STAFF] - Follow up as needed [facility] [Provider Group] - Follow up as needed
--- NOTE | 2020-05-18 16:52 | RADIOLOGY REPORT (SQ) ---
EXAM DESCRIPTION: CT ABD/PELVIS NO ORAL OR IV IMAGES COMPLETED DATE/TIME: 05/18/2020 4:34 pm REASON FOR STUDY: right flank pain, r/o kidney stone COMPARISON: None. TECHNIQUE: CT scan of the abdomen and pelvis performed without intravenous or oral contrast. Images reviewed with lung, soft tissue, and bone windows. Reconstructed coronal and sagittal MPR images revi ewed. All images stored on PACS. All CT scanners at this facility use dose modulation, iterative reconstruction, and/or weight based d osing when appropriate to reduce radiation dose to as low as reasonably achievable (ALARA). [facility]: Dose Right [facility]: CareDose [facility]: Dose Right [facility]: Teradose 4D [facility]: [employer] RADIATION DOSE: CT Rad equipment meets quality standard of care and radiation dose reduction techniq ues were employed. CTDIvol: 18.5 mGy. DLP: 984 mGy-cm.mGy. LIMITATIONS: None. FINDINGS: LOWER CHEST: No significant findings. No nodules or infiltrates. NON-CONTRASTED LIVER, SPLEEN, ADRENALS: Evaluation limited by lack of IV contrast. No identified sign ificant masses. PANCREAS: No masses. No peripancreatic inflammatory changes. GALLBLADDER: No identified stones by CT criteria. No inflammatory changes to suggest cholecystitis. RIGHT KIDNEY AND URETER: No suspicious masses. Assessment limited by lack of IV contrast. No signif icant calcifications. No hydronephrosis or hydroureter. LEFT KIDNEY AND URETER: No suspicious masses. Assessment limited by lack of IV contrast. No signifi cant calcifications. No hydronephrosis or hydroureter. AORTA AND RETROPERITONEUM: No aneurysm. No retroperitoneal masses or adenopathy. BOWEL AND PERITONEAL CAVITY: Status post bariatric surgery. The an opacified bowel is otherwise unre markable. APPENDIX: Normal. PELVIS, BLADDER, AND ABDOMINAL WALL:Incidental note is made of a 5.7 x 4.8 x 5.0 cm right adnexal cys t. The uterus and left adnexa are normal in appearance. No free fluid. The bladder is largely deco mpressed. BONES: No significant findings. OTHER: No other significant finding. IMPRESSION: No evidence of urolithiasis or obstructive uropathy. Incidental finding of a 5.7 cm rig ht adnexal cyst. In the setting of right-sided pain, recommend further evaluation with pelvic ultras ound to assess right ovarian vascularity. COMMENT: Quality ID # [id number]: Final reports with documentation of one or more dose reduction techniques (e.g., Automated exposure control, adjustment of the mA and/or kV according to patient size, use of iterative reconstruction technique) TECHNICAL DOCUMENTATION: JOB ID: [id number] 2010 [employer]- All Rights Reserved Reading location - IP/workstation name: [email or web address]
[2020-05-18] MEDS ORDERED: NORMAL SALINE 1000 ML 1,000 ML IV ONE (17:11)
--- NOTE | 2020-05-18 18:35 | RADIOLOGY REPORT (SQ) ---
EXAM DESCRIPTION: U/S NON OB PEL TV W/DOPPLER IMAGES COMPLETED DATE/TIME: 05/18/2020 2:58 pm REASON FOR STUDY: RLQ pain, 5.7cm right ovarian cyst found on CT COMPARISON: CT abdomen pelvis same date TECHNIQUE: Dynamic and static grayscale images acquired of the pelvis via transvaginal approach and recorded on PACS. Additional selected color Doppler and spectral images recorded. LIMITATIONS: None. FINDINGS: UTERUS: Contour normal. No mass. Retroverted. ENDOMETRIAL STRIPE: No focal or generalized thickening. No masses. CERVIX: Unremarkable. RIGHT OVARY AND DOPPLER: Enlarged. Large cystic structure within the right ovary measures 5.2 x 4.2 x 4.7 cm. There are some mild low level internal echoes and mild thin septations. There is a small hyperechoic structure along the periphery of the cyst which could reflect small blood clot as there i s no internal vascularity within this portion of the cyst. Color and spectral Doppler images otherwi se demonstrate arterial and venous blood flow to the right ovary. LEFT OVARY AND DOPPLER: Normal size. No worrisome masses. Normal arterial vascular flow without evide nce for torsion. FREE FLUID: Trace free pelvic fluid. OTHER: No other significant finding. MEASUREMENTS: UTERUS: 6.3 x 3.7 x 4.6 cm ENDOMETRIAL STRIPE: 0.7 cm RIGHT OVARY: 5.9 x 5.0 x 4.9 cm LEFT OVARY: 2.7 x 1.7 x 1.8 cm IMPRESSION: 1. Enlarged right ovary with right ovarian cyst measuring up to 5.2 cm. There are some low-level internal echoes/thin internal septations with a small hyperechoic avascular structure at t he periphery of the cyst, possibly representing a small blood clot. Given the presence of this echog enic structure, recommend follow-up ultrasound in 6 weeks to confirm resolution and to exclude persis tent hypovascular solid component. 2. Arterial and venous blood flow demonstrated to both ovaries. TECHNICAL DOCUMENTATION: JOB ID: [id number] [employer]- All Rights Reserved Rev-09/05 Reading location - IP/workstation name: [email or web address]
[2020-05-18 19:29] VITALS: BP 152/99
== END 2020-05-18 19:34 | disposition home or self-care (01) ==
LOC: ER 14:42
DX: N83.201 Unspecified ovarian cyst, right side (principal); R10.9 Unspecified abdominal pain; R11.2 Nausea with vomiting, unspecified; I10 Essential (primary) hypertension; Z98.84 Bariatric surgery status
CPT/HCPCS: 99285; 96360; 36415; 83690; 84703; 85025; 81025; 80053; 81001; 76830; 93976; 74176; J7030